=== PATIENT | male | born 1940 | race Caucasian/White ===

== ENCOUNTER 2020-04-02 06:22 | Emergency (ER) | payer MEDICARE ==
[~2020-04-02] VITALS: Ht 182.9 cm; Wt 90.9 kg
[~2020-04-02 06:22] MED LIST: ASPI-630 PO; ATOR10TA60 PO; CALC1TAB75 PO; CEFU500T46 PO; LISI10TA2 PO; METF10007 PO; METF500T16 PO; METO25TA4 PO; MONT10TA49 PO; SULF1TAB24 PO
[2020-04-02 06:24] VITALS: BP 179/85
[2020-04-02] MEDS ORDERED: NYST15PO9 TP (06:53)
--- NOTE | 2020-04-02 06:53 | PHYS DOC ---
Past Medical History Past Medical History: Hypertension Additional Past Medical Histor: TBI w I.C bleed,hyperlipidemia,gcs 13,falls,elopment,weakness Past Surgical History: Other Additional Past Surgical Histo: unknown Smoking Status: Never Smoker Alcohol Use: None Drug Use: None General Adult EDM: Chief Complaint: SKIN PROBLEM HPI: HPI: Patient is a 79 years old male who was dealing with yeast infection in his perigenital area. He was evaluated by his doctor at the [place]. He was put on antifungal cream. He has been getting better. This morning, he noted blood in his private area, bleeding from a varicose vein. So he called EMS to take him here. EMS said the bleeding stopped already when they got there. Patient is not on any blood thinner. Review of Systems: Review of Systems: Constitutional: Denies fever or chills. [] Eyes: Denies change in visual acuity. [] HENT: Denies nasal congestion or sore throat. [] Respiratory: Denies cough or shortness of breath. [] Cardiovascular: Denies chest pain or edema. [] GI: Denies abdominal pain, nausea, vomiting, bloody stools or diarrhea. [] : Denies dysuria. [] Musculoskeletal: Denies back pain or joint pain. [] Integument: Denies rash. [] Neurologic: Denies headache, focal weakness or sensory changes. [] Endocrine: Denies polyuria or polydipsia. [] Lymphatic: Denies swollen glands. [] Psychiatric: Denies depression or anxiety. [] Heart Score: Risk Factors: Risk Factors: DM, Current or recent (<one month) smoker, HTN, HLP, family history of CAD, obesity. Risk Scores: Score 0 - 3: 2.5% MACE over next 6 weeks - Discharge Home Score 4 - 6: 20.3% MACE over next 6 weeks - Admit for Clinical Observation Score 7 - 10: 72.7% MACE over next 6 weeks - Early Invasive Strategies Allergies: Allergies: Allergies Coded Allergies Type Severity Reaction Last Updated Verified No Known Drug Allergies 11/24/15 No Physical Exam: PE: Constitutional: Well developed, well nourished, no acute distress, non-toxic appearance. [] HENT: Normocephalic, atraumatic, bilateral external ears normal, oropharynx moist, no oral exudates, nose normal. [] Eyes: PERRLA, EOMI, conjunctiva normal, no discharge. [] Neck: Normal range of motion, no tenderness, supple, no stridor. [] Cardiovascular:Heart rate regular rhythm, no murmur [] Lungs & Thorax: Bilateral breath sounds clear to auscultation [] Abdomen: Bowel sounds normal, soft, no tenderness, no masses, no pulsatile masses. : There is dried blood in perigenital area. There are vericose veins on scrotum. There is a broken varicose vein but bleeding stopped and clotted. The perigenital area is erythema and tender consistent with yeast infection. There is no crepitus, no scrotal swelling, no penile swelling.... Skin: Warm, dry, no erythema, no rash. [] Back: No tenderness, no CVA tenderness. [] Extremities: No tenderness, no cyanosis, no clubbing, ROM intact, no edema. [] Neurologic: Alert and oriented X 3, normal motor function, normal sensory function, no focal deficits noted. [] Psychologic: Affect normal, judgement normal, mood normal. [] EKG: EKG: [] Radiology/Procedures: Radiology/Procedures: [] Course & Med Decision Making: Course & Med Decision Making Pertinent Labs and Imaging studies reviewed. (See chart for details) Patient is a 79 years old male who was dealing with yeast infection in his perigenital area. He was evaluated by his doctor at the [place]. He was put on antifungal cream. He has been getting better. This morning, he noted blood in his private area, bleeding from a varicose vein. The bleeding was stopped. Will put him on nystatin powder to treat yeast infection. Angy Disclaimer: Angy Disclaimer: This electronic medical record was generated, in whole or in part, using a voice recognition dictation system. Departure Departure Impression: Primary Impression: Bleeding from varicose vein Additional Impression: Yeast dermatitis Disposition: HOME, SELF-CARE Condition: STABLE Referrals: PEMA GODFREY (PCP) please follow up with your doctor this week Patient Instructions: Bleeding Varicose Veins, Yeast Infection of the Skin, [id number] Scripts Nystatin ([place]STATIN) 15 Gm Powder 1 MAT TP BID for 7 Days, #1 BOTTLE 0 Refills apply to affected area(s) Prov: YESI GILBERT DO 04/02/20 YESI GILBERT DO Apr 02, 2020 06:53
== END 2020-04-02 07:01 | disposition home or self-care (01) ==
LOC: ER 06:22
DX: I83.899 Varicose veins of unspecified lower extremity with other complications (principal); B37.9 Candidiasis, unspecified; L53.9 Erythematous condition, unspecified; I10 Essential (primary) hypertension; Z87.820 Personal history of traumatic brain injury; Z98.890 Other specified postprocedural states
CPT/HCPCS: 99284

== ENCOUNTER 2020-10-10 01:13 | Emergency (ER) | payer MEDICARE ==
[~2020-10-10] VITALS: Ht 182.9 cm; Wt 94.0 kg
[~2020-10-10 01:13] MED LIST changes: +CALC-627 PO; -CALC1TAB75 PO; +LISI10TA16 PO; -LISI10TA2 PO; +NYST15PO9 TP
[2020-10-10 02:01] VITALS: BP 129/85
== END 2020-10-10 02:30 | disposition left against medical advice (07) ==
LOC: ER 01:13
DX: K59.00 Constipation, unspecified (principal); Z53.21 Procedure and treatment not carried out due to patient leaving prior to being seen by health care provider

== ENCOUNTER 2021-03-05 23:36 | Emergency (ER) | payer MEDICARE ==
[~2021-03-05] VITALS: Ht 177.8 cm; Wt 80.0 kg
[2021-03-05 23:48] VITALS: BP 133/71
[2021-03-06 00:56] LABS: BILIRUBIN,URINE NEGATIVE (NEG); CLARITY,URINE CLEAR; COLOR,URINE YELLOW; NITRITE,URINE NEGATIVE (NEG); PH,URINE 5.5 (<5.0-8.0); PROTEIN,URINE NEGATIVE (NEG-TRACE)
[2021-03-06 01:03] LABS: BACTERIA,URINE 0 /HPF (0-FEW); RBC,URINE 0 /HPF (0-2); WBC,URINE RARE /HPF (0-4)
--- NOTE | 2021-03-06 01:47 | RAD ---
CT head without contrast: Reason for examination: Possible head injury. Helical images were obtained through the brain with no contrast administered. Ventricular systems are symmetric and not dilated. No midline shift is seen. There is no evidence of intracranial hemorrhage, acute infarct, mass or edema. There is some encephalomalacia in the left fro ntal lobe. No abnormalities of seen at the orbits. The paranasal sinuses and mastoid air cells are cl ear. No acute skull abnormality is seen. 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 No acute intracranial abnormality evident. CT cervical spine without contrast: Helical images were obtained through the cervical spine from the skull base through the thoracic apex with no contrast administered. Reconstruction was performed in sagittal and coronal planes. The C1 ring is intact. The odontoid process appears to be intact and normally centered between the la teral masses of C1. The vertebral bodies of the cervical spine are normally aligned anteriorly and po steriorly. No acute fracture or subluxation is seen. There is some degenerative disc disease at the C 3-4, C4 5/6 and C6-7 disc levels. No significant spinal stenosis is evident. Prevertebral soft tissue s are normal. IMPRESSION: Degenerative spondylosis. No acute abnormality in the cervical spine. Exposure: One or more of the following individualized dose reduction techniques were utilized for thi s examination: 1. Automated exposure control 2. Adjustment of the mA and/or kV according to patient size 3. Use of iterative reconstruction technique. Electronically signed by: Taylor Collins MD (03/06/2021 1:45 AM) VIOLETTE
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
[2021-03-06] MEDS ORDERED: IBUPROFEN 200 MG TABLET. PO ONE (02:45)
== END 2021-03-06 03:53 | disposition home or self-care (01) ==
LOC: ER 23:36
DX: S09.90XA Unspecified injury of head, initial encounter (principal); I10 Essential (primary) hypertension; E11.9 Type 2 diabetes mellitus without complications; E78.5 Hyperlipidemia, unspecified; G93.89 Other specified disorders of brain; Z87.820 Personal history of traumatic brain injury; Z88.1 Allergy status to other antibiotic agents; Z88.8 Allergy status to other drugs, medicaments and biological substances; W18.09XA Striking against other object with subsequent fall, initial encounter; Y93.89 Activity, other specified; Y92.89 Other specified places as the place of occurrence of the external cause; Y99.8 Other external cause status
CPT/HCPCS: 70450; 72125; 81001; 99285-25